=== PATIENT | male | born 1980 | race Two or more races ===

== ENCOUNTER 2022-03-14 22:55 | Inpatient (IN) | payer OTHER, SELFPAY ==
--- NOTE | ~2022-03-14 | CT_ITS ---
EXAMINATION: CT HEAD WITHOUT CONTRAST CLINICAL INFORMATION: Oscillopsia. COMPARISON: No relevant prior imaging. TECHNIQUE: Contiguous axial imaging was performed from the skull base to vertex without intravenous administration of contrast. This CT examination was performed using dose optimization techniques as appropriate, variously including the following: *Automated exposure control *Adjustment of mA and/or kV according to patient size (this includes techniques or standardized protocols for targeted exams where dose is matched to indication/reason for exam; i.e. extremities or head) *Use of iterative reconstruction technique DLP: 859 mGy-cm FINDINGS: There is no acute intracranial hemorrhage or abnormal extra-axial collection. No intracranial mass effect or midline shift. Lateral and third ventricles are normal. No hydrocephalus. Moe-white matter differentiation is preserved and there is no evidence of acute territorial infarct. The calvarium and skull base are intact. Mastoid air cells and middle ear cavities are well aerated. No active paranasal sinus disease. CT/CT head/brain wo con IMPRESSION: Normal CT scan of the head.
[2022-03-14 23:05] VITALS: BP 108/60; BP 112/72; PULSE 110; PULSE 120; RESP 14; TEMP 37.3; O2SAT 97; BMI 33.8
--- NOTE | 2022-03-14 23:11 | ECG_ITS ---
Test Reason : CHEST PAIN Blood Pressure : / mmHG Vent. Rate : 104 BPM Atrial Rate : 104 BPM P-R Int : 170 ms QRS Dur : 086 ms QT Int : 338 ms P-R-T Axes : 037 -32 045 degrees QTc Int : 444 ms Sinus tachycardia Left axis deviation Borderline ECG No previous ECGs available Referred By: Kristin Foster Electronically Signed By:KRISTI BREWER
--- NOTE | 2022-03-14 23:12 | ED_ITS ---
HPI - Psych General Chief Complaint: Psychiatric Symptoms Stated Complaint: SI Time Seen by Provider: 03/14/22 23:04 Source: patient and EMS Mode of arrival: EMS Limitations: no limitations History of Present Illness HPI Narrative: Patient comes to the emergency room via EMS. Patient walked into the police station, stated that he was suicidal, Domo SPENCE called EMS and brought him to the emergency room. Patient states that he feels depressed, suicidal. Prior to arrival patient used 60 dollars worth of heroin and 40 dollars worth of cocaine. Patient complaining of chest pain on the left side, nonradiating. Patient requesting to see [facility]. Of note, patient lost his 2 weeks ago, his of an asthma exacerbation. Patient states that he has command hallucinations to end his life Related Data Allergies Allergy/AdvReac Type Severity Reaction Status Date / Time No Known Allergies Allergy Verified 03/14/22 23:11 Review of Systems Review of Systems: Constitutional : No Weight loss, No Fever, No Chills, No Night Sweats, No Fatigue, No Malaise ENT/Mouth : No Hearing loss, No Ear Pain, No Nasal Congestion, No Sinus Pain, No Hoarseness, No sore throat, No Rhinorrhea, No Swallowing Difficulty Eyes: No Eye Pain, No Swelling, No Redness, No Foreign Body, No Discharge, No Vision Changes Cardiovascular : Complaining chest pain on the left side, no shortness of breath, no orthopnea, palpitations Respiratory : No Cough, No Sputum, No Wheezing, No Smoke Exposure, No Dyspnea Gastrointestinal : No Nausea, No Vomiting, No Diarrhea, No Constipation, No abdominal Pain, No Hematochezia, No Melena Genitourinary : no irregular bleeding, No Dysuria, No Urinary Frequency, No Hematuria, No Urinary Incontinence, No Urgency, No Flank Pain, No Urinary Flow Changes, No Hesitancy Musculoskeletal : No joint pain, No Myalgias, No Joint Swelling Skin : No Skin Lesions, No rash Neuro : No Weakness, No Numbness, No Paresthesias, No Loss of Consciousness, No Dizziness, No Headache Psych : Complaining of depression, suicidal ideation, no anxiety, no homicidal ideation Heme/Lymph: No Bruising, No Bleeding,No Lymphadenopathy Endocrine : No Polyuria, No Polydipsia, No Temperature Intolerance PMFSH Past Medical History Medical History (Updated 03/15/22 @ 02:36 by Kristin Foster MD) Polysubstance abuse Social History Social History Advance Directives: No Physical Exam Vital Signs: Vital Signs: Last Vital Signs Temp 98.0 F 03/15/22 00:00 Pulse 92 03/15/22 00:00 Resp 18 03/15/22 00:00 BP 107/70 03/15/22 00:00 Pulse Ox 97 03/15/22 00:00 BMI result Body Mass Index 33.8 Const: Other: Appearance: Alert. Oriented X3. No acute distress. Well-appearing Eyes: Pupils equal, round and reactive to light. ENT: Pharynx normal. Neck: Normal inspection. Neck supple. No lymph nodes noted. No crepitus CVS: Normal heart rate and rhythm. Pulses normal. Normal S1 and S2 Respiratory: No respiratory distress. Breath sounds normal. No Wheezing. No rales Abdomen: Soft and nontender. No rigidity. No distention. Skin: Skin warm and dry. Normal skin color. Normal skin turgor. Extremities: No lower extremity edema. No Lacerations. No Rash Neuro: Oriented X 3. No motor deficit. No sensory deficit. Moving all extremities. No slurred speech. CN 2 through 12 grossly intact Psych: calm, cooperative, normal affect Course Course Course Narrative: Labs and EKG pending. After medical clearance patient will be going to the [facility] pod Patient's troponin 2. Needs to be redrawn at 02:30 in the morning. Patient will be going to the [facility] pod Patient is on a Section 12 Physician observation started at 00:25 [facility] evaluated the patient. Recommendation inpatient bed search, Section 12 MDM - Psych Lab Data Result diagrams: 03/14/22 23:39 03/14/22 23:39 Labs: Lab Results 03/14/22 03/14/22 03/14/22 Range/Units 23:39 23:39 23:39 WBC 11.3 H (4.8-10.8) X10*3/uL RBC 4.71 (4.60-5.80) X10*6/uL Hgb 11.2 L (14.0-18.0) g/dl Hct 36.4 L (42.0-52.0) % MCV 77.3 L (80.0-98.0) fL MCH 23.8 L (27.0-33.0) pg MCHC 30.8 L (31.0-36.0) g/dl RDW 18.0 H (11.0-16.0) % Plt Count 310 (160-400) X10*3/uL MPV 10.1 (9.4-12.4) fL Immature Gran % (Auto) 0.3 (0.0-0.4) % Neut % (Auto) 74.0 H (45-73) % Lymph % (Auto) 18.2 L (20-40) % Atkinson % (Auto) 6.5 (2-11) % Eos % (Auto) 0.7 (0-4) % Baso % (Auto) 0.3 (0-2) % Lymph # (Auto) 2.1 (1.2-4.9) X10*3/uL Atkinson # (Auto) 0.7 (0.1-1.2) X10*3/uL Eos # (Auto) 0.1 (0.0-0.4) X10*3/uL Baso # (Auto) 0.0 (0.0-0.2) X10*3/uL Abs Immat Gran (auto) 0.03 (0.00-0.03) X10*3/uL Absolute Neuts (auto) 8.4 H (2.0-8.3) x10*3/uL Absolute Nucleated RBC 0.000 (0.0-0.012) X10*3/uL Nucleated RBC % (auto) 0.0 (0.0-0.2) /100WBC Sodium 141 (135-145) mmol/L Potassium 3.8 (3.3-5.1) mmol/L Chloride 106 (96-108) mmol/L Carbon Dioxide 27 (22-29) mmol/L Anion Gap 12 (12-20) BUN 22 H (9-16) mg/dL Creatinine 0.90 (0.5-1.4) mg/dL Estim Creat Clear Calc 111.6 Estimated GFR > 60 Random Glucose 92 (60-115) mg/dL Calcium 9.6 (8.4-10.2) mg/dL Magnesium 1.7 (1.6-2.6) mg/dL Total Bilirubin 0.2 (0.0-1.0) mg/dL Direct Bilirubin < 0.2 (0.0-0.5) mg/dL AST 22 (5-37) U/L ALT 27 (0-40) U/L Alkaline Phosphatase 94 (39-117) U/L Troponin I High Sens 8.4 (<3.5-35.0) ng/L Total Protein 7.8 (6.5-8.0) g/dL Albumin 3.9 (3.5-5.0) g/dL Urine Color Urine Appearance Urine pH (5.0-8.0) Ur Specific [place] (1.005-1.025) Urine Protein (NEG-TRACE) MG/DL Urine Glucose (UA) (NEG) MG/DL Urine Ketones (NEG) MG/DL Urine Blood (NEG) Urine Nitrite (NEG) Ur Leukocyte Esterase (NEG) Urine RBC (0) /HPF Urine WBC (0-4) /HPF Ur Squamous Epith Cells /LPF Calcium Oxalate Crystal /LPF Urine Bacteria /LPF Urine Mucus /LPF Urine Opiates Screen (Not Detect) Urine Fentanyl Screen (Not Detect) Ur Barbiturates Screen (Not Detect) Ur Phencyclidine Scrn (Not Detect) Ur Amphetamines Screen (Not Detect) U Benzodiazepines Scrn (Not Detect) Urine Cocaine Screen (Not Detect) U Marijuana (THC) Screen (Not Detect) Ethyl Alcohol mg/dL COVID-19 (JENNIFER) (Negative) COVID-19 Clin Com 03/14/22 03/14/22 03/15/22 Range/Units 23:39 23:39 00:43 WBC (4.8-10.8) X10*3/uL RBC (4.60-5.80) X10*6/uL Hgb (14.0-18.0) g/dl Hct (42.0-52.0) % MCV (80.0-98.0) fL MCH (27.0-33.0) pg MCHC (31.0-36.0) g/dl RDW (11.0-16.0) % Plt Count (160-400) X10*3/uL MPV (9.4-12.4) fL Immature Gran % (Auto) (0.0-0.4) % Neut % (Auto) (45-73) % Lymph % (Auto) (20-40) % Atkinson % (Auto) (2-11) % Eos % (Auto) (0-4) % Baso % (Auto) (0-2) % Lymph # (Auto) (1.2-4.9) X10*3/uL Atkinson # (Auto) (0.1-1.2) X10*3/uL Eos # (Auto) (0.0-0.4) X10*3/uL Baso # (Auto) (0.0-0.2) X10*3/uL Abs Immat Gran (auto) (0.00-0.03) X10*3/uL Absolute Neuts (auto) (2.0-8.3) x10*3/uL Absolute Nucleated RBC (0.0-0.012) X10*3/uL Nucleated RBC % (auto) (0.0-0.2) /100WBC Sodium (135-145) mmol/L Potassium (3.3-5.1) mmol/L Chloride (96-108) mmol/L Carbon Dioxide (22-29) mmol/L Anion Gap (12-20) BUN (9-16) mg/dL Creatinine (0.5-1.4) mg/dL Estim Creat Clear Calc Estimated GFR Random Glucose (60-115) mg/dL Calcium (8.4-10.2) mg/dL Magnesium (1.6-2.6) mg/dL Total Bilirubin (0.0-1.0) mg/dL Direct Bilirubin (0.0-0.5) mg/dL AST (5-37) U/L ALT (0-40) U/L Alkaline Phosphatase (39-117) U/L Troponin I High Sens (<3.5-35.0) ng/L Total Protein (6.5-8.0) g/dL Albumin (3.5-5.0) g/dL Urine Color YELLOW Urine Appearance TURBID Urine pH 6.0 (5.0-8.0) Ur Specific [place] >= 1.030 H (1.005-1.025) Urine Protein TRACE (NEG-TRACE) MG/DL Urine Glucose (UA) NEG (NEG) MG/DL Urine Ketones 5 (NEG) MG/DL Urine Blood 3+ H (NEG) Urine Nitrite NEG (NEG) Ur Leukocyte Esterase 1+ H (NEG) Urine RBC 15-29 H (0) /HPF Urine WBC 15-29 H (0-4) /HPF Ur Squamous Epith Cells TRACE /LPF Calcium Oxalate Crystal 2+ /LPF Urine Bacteria TRACE /LPF Urine Mucus 3+ /LPF Urine Opiates Screen (Not Detect) Urine Fentanyl Screen (Not Detect) Ur Barbiturates Screen (Not Detect) Ur Phencyclidine Scrn (Not Detect) Ur Amphetamines Screen (Not Detect) U Benzodiazepines Scrn (Not Detect) Urine Cocaine Screen (Not Detect) U Marijuana (THC) Screen (Not Detect) Ethyl Alcohol < 10 mg/dL COVID-19 (JENNIFER) Negative (Negative) COVID-19 Clin Com See Note 03/15/22 Range/Units 00:43 WBC (4.8-10.8) X10*3/uL RBC (4.60-5.80) X10*6/uL Hgb (14.0-18.0) g/dl Hct (42.0-52.0) % MCV (80.0-98.0) fL MCH (27.0-33.0) pg MCHC (31.0-36.0) g/dl RDW (11.0-16.0) % Plt Count (160-400) X10*3/uL MPV (9.4-12.4) fL Immature Gran % (Auto) (0.0-0.4) % Neut % (Auto) (45-73) % Lymph % (Auto) (20-40) % Atkinson % (Auto) (2-11) % Eos % (Auto) (0-4) % Baso % (Auto) (0-2) % Lymph # (Auto) (1.2-4.9) X10*3/uL Atkinson # (Auto) (0.1-1.2) X10*3/uL Eos # (Auto) (0.0-0.4) X10*3/uL Baso # (Auto) (0.0-0.2) X10*3/uL Abs Immat Gran (auto) (0.00-0.03) X10*3/uL Absolute Neuts (auto) (2.0-8.3) x10*3/uL Absolute Nucleated RBC (0.0-0.012) X10*3/uL Nucleated RBC % (auto) (0.0-0.2) /100WBC Sodium (135-145) mmol/L Potassium (3.3-5.1) mmol/L Chloride (96-108) mmol/L Carbon Dioxide (22-29) mmol/L Anion Gap (12-20) BUN (9-16) mg/dL Creatinine (0.5-1.4) mg/dL Estim Creat Clear Calc Estimated GFR Random Glucose (60-115) mg/dL Calcium (8.4-10.2) mg/dL Magnesium (1.6-2.6) mg/dL Total Bilirubin (0.0-1.0) mg/dL Direct Bilirubin (0.0-0.5) mg/dL AST (5-37) U/L ALT (0-40) U/L Alkaline Phosphatase (39-117) U/L Troponin I High Sens (<3.5-35.0) ng/L Total Protein (6.5-8.0) g/dL Albumin (3.5-5.0) g/dL Urine Color Urine Appearance Urine pH (5.0-8.0) Ur Specific [place] (1.005-1.025) Urine Protein (NEG-TRACE) MG/DL Urine Glucose (UA) (NEG) MG/DL Urine Ketones (NEG) MG/DL Urine Blood (NEG) Urine Nitrite (NEG) Ur Leukocyte Esterase (NEG) Urine RBC (0) /HPF Urine WBC (0-4) /HPF Ur Squamous Epith Cells /LPF Calcium Oxalate Crystal /LPF Urine Bacteria /LPF Urine Mucus /LPF Urine Opiates Screen POSITIVE H (Not Detect) Urine Fentanyl Screen POSITIVE H (Not Detect) Ur Barbiturates Screen Not Detected (Not Detect) Ur Phencyclidine Scrn Not Detected (Not Detect) Ur Amphetamines Screen Not Detected (Not Detect) U Benzodiazepines Scrn Not Detected (Not Detect) Urine Cocaine Screen POSITIVE H (Not Detect) U Marijuana (THC) Screen Not Detected (Not Detect) Ethyl Alcohol mg/dL COVID-19 (JENNIFER) (Negative) COVID-19 Clin Com Discharge Plan Discharge Clinical Impression: Polysubstance abuse, Feeling suicidal, Chest pain, Auditory hallucination Patient Disposition: Still a Patient
[2022-03-14 23:45] LABS: Basophils Percent Auto 0.3 % (0-2); Eosinophils Absolute Auto 0.1 X10*3/uL (0.0-0.4); Eosinophils Percent Auto 0.7 % (0-4); Hematocrit 36.4 % (42.0-52.0); Hemoglobin 11.2 g/dl (14.0-18.0); Imm Gran Abs Auto 0.03 X10*3/uL (0.00-0.03); Imm Gran Pct Auto 0.3 % (0.0-0.4); Lymphocytes Absolute Auto 2.1 X10*3/uL (1.2-4.9); Lymphocytes Percent Auto 18.2 % (20-40); MANUAL DIFF FLAG NO; Mean Corpuscular HGB Conc 30.8 g/dl (31.0-36.0); Mean Corpuscular Hemoglobin 23.8 pg (27.0-33.0); Mean Corpuscular Volume 77.3 fL (80.0-98.0); Mean Platelet Volume 10.1 fL (9.4-12.4); Monocytes Absolute Auto 0.7 X10*3/uL (0.1-1.2); Monocytes Percent Auto 6.5 % (2-11); Neutrophils Absolute Auto 8.4 x10*3/uL (2.0-8.3); Platelet Count 310 X10*3/uL (160-400); Red Blood Count 4.71 X10*6/uL (4.60-5.80); White Blood Count 11.3 X10*3/uL (4.8-10.8)
[2022-03-15] VITALS: BP 107/70; PULSE 92; RESP 18; TEMP 36.7; O2SAT 97
[2022-03-15] LABS: COVID-19 Test Negative (Negative)
[2022-03-15 00:09] LABS: Ethanol < 10 mg/dL
[2022-03-15 00:12] LABS: Alanine Aminotransferase 27 U/L (0-40); Albumin Level 3.9 g/dL (3.5-5.0); Alkaline Phosphatase 94 U/L (39-117); Anion Gap 12 (12-20); Aspartate Amino Transferase 22 U/L (5-37); Bilirubin Direct < 0.2 mg/dL (0.0-0.5); Bilirubin Total 0.2 mg/dL (0.0-1.0); Blood Urea Nitrogen 22 mg/dL (9-16); Calcium 9.6 mg/dL (8.4-10.2); Carbon Dioxide 27 mmol/L (22-29); Chloride 106 mmol/L (96-108); Creatinine Clr Calc Pharmacy 111.6; Estimated Glomerular Filt Rate > 60; Glucose Random 92 mg/dL (60-115); Magnesium 1.7 mg/dL (1.6-2.6); Potassium 3.8 mmol/L (3.3-5.1); Sodium 141 mmol/L (135-145); Total Protein 7.8 g/dL (6.5-8.0)
[2022-03-15 00:15] LABS: Troponin-I High Sensitivity 8.4 ng/L (<3.5-35.0)
[2022-03-15 00:55] LABS: Appearance Urine TURBID; Color Urine YELLOW; Glucose Urine UA NEG (NEG); Leukocyte Esterase Urine 1+ (NEG); Nitrite Urine NEG (NEG); Specific Gravity - Urine >= 1.030 (1.005-1.025); UACC Culture Trigger YES; Urine Blood 3+ (NEG); Urine Ketones 5 MG/DL (NEG); Urine Protein TRACE MG/DL (NEG-TRACE)
[2022-03-15 01:05] LABS: Amphetamine Screen Urine Not Detected (Not Detect); Barbiturates, Urine Not Detected (Not Detect); Benzodiazepines Screen Urine Not Detected (Not Detect); Cannabinoid Screen Urine Not Detected (Not Detect); Cocaine Screen Urine POSITIVE (Not Detect); Fentanyl, urine POSITIVE (Not Detect); Opiate Screen Urine POSITIVE (Not Detect); Phencyclidine Screen Urine Not Detected (Not Detect)
[2022-03-15 01:14] LABS: Squamous Epithelial Cell Urine TRACE /LPF
[2022-03-15 01:15] LABS: Bacteria Urine TRACE /LPF; Calcium Oxalate Crystals Urine 2+ /LPF; Mucus Urine 3+ /LPF
[2022-03-15 03:07] LABS: Troponin-I High Sensitivity 8.5 ng/L (<3.5-35.0)
--- NOTE | 2022-03-15 06:47 | PC.NURSE ---
Patient slept through the night, no distress observed/reported, behavior calm and quiet, disposition per [facility] is section 12 inpatient bed search, patient is currently not on any medication except Methadone, methadone dose verified/faxed to pharmacy/provider approved/MAR updated, VSS, will continue to monitor.
[2022-03-15] MEDS: methADONE HCl 20 MG/2 ML ORAL.CONC 30 MG PO (08:24)
--- NOTE | 2022-03-15 13:41 | PC.NURSE ---
Patient alert and oriented x 4 lung sounds are clear skin is pink warm and dry speaks in full sentences without difficulty, aware of plan to be admitted to m3. Awaiting admission orders for the floor.
[2022-03-15 13:42] VITALS: BP 102/62; PULSE 76; RESP 15; TEMP 36.8; O2SAT 98
--- NOTE | 2022-03-15 14:19 | PC.NURSE ---
nurse to nurse given to m3
[2022-03-15 16:10] VITALS: BP 135/87; PULSE 75; RESP 16; TEMP 36.6; O2SAT 99
--- NOTE | 2022-03-15 16:46 | PC.ADMIT ---
Patient arrived to the unit from [facility] at 16:10. Patient arrived in a wheelchair escorted by this RN and security. Patient signed a conditional voluntary. Patient is A & Ox4, and pleasant upon approach. Vital signs upon admission were with in normal limits, T: 97.8F, HR: 75, RR: 16, BP: 165/87, O2: 99% RA. Patient rated pain as 0/10. Patient declined to participate in admission process. Admission was completed using crisis assessment. Per crisis assessment patient was brought to ED due to suicidal ideation and command auditory hallucinations telling him to kill himself. Per crisis pt has a history of past suicide attempts including jumping off a bride into the [place] river. Patient reported in crisis getting into fights and conflicts with others in an attempt to get hurt so that he will feel something . Patient reported to be a smoker and smoking 1.5 packs of cigarettes a day. Requested nicotine patch and nicotine gum for replacement therapies. Toxicology was was positive for opiates, fentanyl, and cocaine. Patient reported the of his 12 days ago has been very hard on me . Patient reported I was in [facility] ED for 3 days after her . They kept me in a bed in a room and a hallway . Patient reported that he uses methadone 30 mg prior to admission. Patient reported sleep has been poor recently. Patient reported that he has recently lost greater than 10 pounds due to decreased appetite. Patient denied having outside providers. Patient currently denies SI/HI/AH/VH. Patient reports feeling safe here.
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
[2022-03-15 22:06] VITALS: BP 133/60; PULSE 72; RESP 16; TEMP 36.8; O2SAT 99
[2022-03-15] MEDS: traZODone HCL 100 MG TABLET PO (22:13)
[2022-03-16 08:00] VITALS: PULSE 73
[2022-03-16 09:31] VITALS: BP 123/85; PULSE 73; RESP 16; TEMP 36.7; O2SAT 98
[2022-03-16] MEDS: methADONE HCl 20 MG/2 ML ORAL.CONC 30 MG PO (09:33)
--- NOTE | 2022-03-16 13:29 | PM.EVENT ---
Event Note Date of Service: 03/16/22 Event Note: Addiction brief note: Patient seen. Has been receiving methadone 30mg QD since admission to [facility]. Reporting chills, diaphoresis in the late afternoon. Had been buying methadone and taking approx 65mg QD (per his report) Heroin 2 bundles QD Plan: -additional methadone 10mg now (total of 40mg today) -methadone 50mg tomorrow and Friday -monitor for oversedation and avoid benzodiazepines if possible Full consult note to follow
[2022-03-16] MEDS: methADONE HCl 20 MG/2 ML ORAL.CONC 10 MG PO (13:42)
[2022-03-16] MEDS: Bismuth Subsalicylate 262 MG TABLET 524 MG PO (13:46)
--- NOTE | 2022-03-16 15:14 | P.PNPSI_ITS ---
Subjective Subjective Date of Service: 03/16/22 Reason For Visit: SI Subjective Notes: Conditional Voluntary Interim History: met with patient. Discussed with Nursing. Admitted in the context of depression, command hallucinations to hurt self, 's around 2 weeks ago. Relapsed on heroin Just before her . On methadone maintenance recently 30 mg. Awaiting addiction consult. Previously saw prescribers at [facility] but did not follow-up. Denies history of suicide attempts. Did endorse a diagnosis of schizoaffective disorder in the past with depression and paranoia and hallucinations but no manic episodes. Did discuss the of his 13 years suddenly around 2 weeks ago. Discussed patient trying to give her an inhaler and a nebulizer at home before EMS arrived. His 8-year-old daughter is currently staying with his mom and he feels positive about this. Does have a history of 2 years sobriety and 1 year until recent relapse. Medication Compliance: Yes Side effects from medications: No Attending Groups: Yes Review of Systems Acute medical concerns: No Review of Systems Review of Systems unremarkable Mental Status Exam Mental Status Exam Narrative: pleasant and engaged. Hospital clothing. Self-care limited. Organized. Articular. Depressed. Endorses suicidal thoughts but also denies plans or intent. Feels supported. Endorses hallucinations telling him to jump out in front of traffic. Denies current paranoia. No HI. Insight and judgment okay Diagnostics Vital Signs (24Hr): Vital Signs - 24 hr 03/15/22 16:10 03/15/22 22:06 03/16/22 09:31 Temperature 97.8 F 98.2 F 98.1 F Pulse Rate 75 72 73 Respiratory Rate 16 16 16 Blood Pressure 135/87 133/60 123/85 Pulse Oximetry 99 99 98 BMI result Body Mass Index 33.8 Labs Results: 03/14/22 23:39 03/14/22 23:39 Labs: Laboratory Results - last 48 hr 03/14/22 03/14/22 03/14/22 23:39 23:39 23:39 WBC 11.3 H RBC 4.71 Hgb 11.2 L Hct 36.4 L MCV 77.3 L MCH 23.8 L MCHC 30.8 L RDW 18.0 H Plt Count 310 MPV 10.1 Immature Gran % (Auto) 0.3 Neut % (Auto) 74.0 H Lymph % (Auto) 18.2 L [place] % (Auto) 6.5 Eos % (Auto) 0.7 Baso % (Auto) 0.3 Lymph # (Auto) 2.1 [place] # (Auto) 0.7 Eos # (Auto) 0.1 Baso # (Auto) 0.0 Abs Immat Gran (auto) 0.03 Absolute Neuts (auto) 8.4 H Absolute Nucleated RBC 0.000 Nucleated RBC % (auto) 0.0 Sodium 141 Potassium 3.8 Chloride 106 Carbon Dioxide 27 Anion Gap 12 BUN 22 H Creatinine 0.90 Estim Creat Clear Calc 111.6 Estimated GFR > 60 Random Glucose 92 Calcium 9.6 Magnesium 1.7 Total Bilirubin 0.2 Direct Bilirubin < 0.2 AST 22 ALT 27 Alkaline Phosphatase 94 Troponin I High Sens 8.4 Total Protein 7.8 Albumin 3.9 Urine Color Urine Appearance Urine pH Ur Specific [place] Urine Protein Urine Glucose (UA) Urine Ketones Urine Blood Urine Nitrite Ur Leukocyte Esterase Urine RBC Urine WBC Ur Squamous Epith Cells Calcium Oxalate Crystal Urine Bacteria Urine Mucus Urine Opiates Screen Urine Fentanyl Screen Ur Barbiturates Screen Ur Phencyclidine Scrn Ur Amphetamines Screen U Benzodiazepines Scrn Urine Cocaine Screen U Marijuana (THC) Screen Ethyl Alcohol COVID-19 (JENNIFER) COVID-19 Clin Com 03/14/22 03/14/22 03/15/22 23:39 23:39 00:43 WBC RBC Hgb Hct MCV MCH MCHC RDW Plt Count MPV Immature Gran % (Auto) Neut % (Auto) Lymph % (Auto) [place] % (Auto) Eos % (Auto) Baso % (Auto) Lymph # (Auto) [place] # (Auto) Eos # (Auto) Baso # (Auto) Abs Immat Gran (auto) Absolute Neuts (auto) Absolute Nucleated RBC Nucleated RBC % (auto) Sodium Potassium Chloride Carbon Dioxide Anion Gap BUN Creatinine Estim Creat Clear Calc Estimated GFR Random Glucose Calcium Magnesium Total Bilirubin Direct Bilirubin AST ALT Alkaline Phosphatase Troponin I High Sens Total Protein Albumin Urine Color YELLOW Urine Appearance TURBID Urine pH 6.0 Ur Specific [place] >= 1.030 H Urine Protein TRACE Urine Glucose (UA) NEG Urine Ketones 5 Urine Blood 3+ H Urine Nitrite NEG Ur Leukocyte Esterase 1+ H Urine RBC 15-29 H Urine WBC 15-29 H Ur Squamous Epith Cells TRACE Calcium Oxalate Crystal 2+ Urine Bacteria TRACE Urine Mucus 3+ Urine Opiates Screen Urine Fentanyl Screen Ur Barbiturates Screen Ur Phencyclidine Scrn Ur Amphetamines Screen U Benzodiazepines Scrn Urine Cocaine Screen U Marijuana (THC) Screen Ethyl Alcohol < 10 COVID-19 (JENNIFER) Negative COVID-19 Clin Com See Note 03/15/22 03/15/22 00:43 02:42 WBC RBC Hgb Hct MCV MCH MCHC RDW Plt Count MPV Immature Gran % (Auto) Neut % (Auto) Lymph % (Auto) [place] % (Auto) Eos % (Auto) Baso % (Auto) Lymph # (Auto) [place] # (Auto) Eos # (Auto) Baso # (Auto) Abs Immat Gran (auto) Absolute Neuts (auto) Absolute Nucleated RBC Nucleated RBC % (auto) Sodium Potassium Chloride Carbon Dioxide Anion Gap BUN Creatinine Estim Creat Clear Calc Estimated GFR Random Glucose Calcium Magnesium Total Bilirubin Direct Bilirubin AST ALT Alkaline Phosphatase Troponin I High Sens 8.5 Total Protein Albumin Urine Color Urine Appearance Urine pH Ur Specific [place] Urine Protein Urine Glucose (UA) Urine Ketones Urine Blood Urine Nitrite Ur Leukocyte Esterase Urine RBC Urine WBC Ur Squamous Epith Cells Calcium Oxalate Crystal Urine Bacteria Urine Mucus Urine Opiates Screen POSITIVE H Urine Fentanyl Screen POSITIVE H Ur Barbiturates Screen Not Detected Ur Phencyclidine Scrn Not Detected Ur Amphetamines Screen Not Detected U Benzodiazepines Scrn Not Detected Urine Cocaine Screen POSITIVE H U Marijuana (THC) Screen Not Detected Ethyl Alcohol COVID-19 (JENNIFER) COVID-19 Clin Com Medications Medications Current Medications Acetaminophen (Acetaminophen 325 Mg Tablet) 650 mg PO Q6H PRN PRN Reason: Headache/Pain Mild Scale (1-3) Al Hydroxide/Mg Hydroxide (Magnesium Hydrox/Alum Hydrox 30 Ml Oral.Susp) 30 ml PO Q6H PRN PRN Reason: Heartburn/Nausea Bismuth Subsalicylate (Bismuth Subsalicylate 262 Mg Tablet) 524 mg PO QID PRN PRN Reason: upset stomach Last Admin: 03/16/22 13:46 Dose: 524 mg Documented by: Clonidine HCl (Clonidine Hcl 0.1 Mg Tablet) 0.1 mg PO TID PRN; Protocol PRN Reason: anxiety Hydroxyzine HCl (Hydroxyzine Hcl 25 Mg Tablet) 25 mg PO BEDTIME PRN PRN Reason: Anxiety Lorazepam (Lorazepam 1 Mg Tablet) 1 mg PO Q6H PRN PRN Reason: for CIWA >8 Magnesium Hydroxide (Milk Of Magnesia 30 Ml Oral.Susp) 30 ml PO DAILY PRN PRN Reason: Constipation Methadone HCl (Methadone Hcl 20 Mg/2 Ml Oral.Conc) 50 mg PO DAILY DENISHA Nicotine Polacrilex (Nicotine Polacrilex 2 Mg Gum) 4 mg BUCCAL Q2H PRN PRN Reason: Nicotine Cravings Olanzapine (Olanzapine 10 Mg Tablet) 10 mg PO BEDTIME DENISHA Trazodone HCl (Trazodone Hcl 50 Mg Tablet) 50 mg PO BEDTIME PRN PRN Reason: Insomnia Allergies Allergies Allergy/AdvReac Type Severity Reaction Status Date / Time No Known Allergies Allergy Verified 03/14/22 23:11 Assessment & Plan Assessment & Plan (1) Adjustment disorder with depressed mood: Status: Acute Code(s): F43.21 - Adjustment disorder with depressed mood (2) Opioid use disorder, moderate, in early remission: Status: Acute Code(s): F11.21 - Opioid dependence, in remission (3) Cocaine use disorder: Status: Acute Code(s): F14.10 - Cocaine abuse, uncomplicated (4) MDD (major depressive disorder), recurrent episode, moderate: Status: Acute Code(s): F33.1 - Major depressive disorder, recurrent, moderate Plan Amish is a 42 y.o. Male who carries a dx of polysubstance abuse, MDD recurrent, and adjustment disorder. He presented to [facility] ED on 03/14/22 due to increased depression, SI, and a recent suicide attempt by overdosing on heroin, cocaine, and fentanyl. Precipitating factors include that his gf of 13 years 2 weeks ago unexpectedly. Plan: Pt is requesting addiction consult, as he does not think his methadone dose is sufficient. Will initiate COWS, CIWA and comfort meds, ativan PRN. Pt denies hx of antidepressant trial and would benefit from SSRI. Will defer to primary psych team. 03/16/2022: Describes main symptoms is being command hallucinations and depression. Will start olanzapine to help with sleep psychosis and also potential mood benefit. Addictions consult pending. I spent minutes with the patient and/or on the patient floor today, greater than?50% of which was spent counseling/coordinating care. Patient educated on: diagnosis, medication risk/benefits and substance abuse Informed Consent: understands Reason for contiued inpatient stay Substantial Risk for: harm to self
[2022-03-16 20:34] VITALS: BP 114/60; PULSE 93; RESP 18; TEMP 36.6; O2SAT 96
--- NOTE | 2022-03-16 20:56 | HO.ADDICT_ITS ---
History of Present Illness Date of Service: 03/16/2022 Chief Complaint: SI Reason for Consult: methadone titration Requesting physician: Mayelin Soria Discussed with referring provider: No Sources of Information: patient interviewed and chart reviewed HPI Narrative: Patient is a 42 year old male with OUD currently psychiatrically admitted with suicidal ideation, AH. Started on methadone 30mg QD while at [facility] ED prior to admission to [facility]. Patient requesting increase in dose. Patient seen on M3. Awake, alert and appropriate Reports he was started on methadone while at [facility] ED for SI. Prior to that had been buying methadone on the street and taking 60-65mg while using up to 2 bundles of heroin QD. Has been using heroin on and off since he was 20 years old. 2 years in recovery--unclear when this was Denies any history of overdose Reports cocain use. Denies ETOH or benzodiazepine use Previously on MOUD, including methadone at [facility].--he would like to retunr to this clinic Requesting dose increase as he has been experiencing withdrawal sx in the early afternoon including chills, body aches, rhinorrea and diaphoresis. Past Psychiatric History: -Hx of suicidal gestures 3 years ago, says [place], [place], did not require medical intervention. -Past med trials: trazodone (helpful) Review of Systems Constitutional: Reports as per HPI Diagnostics Vital Signs (24Hr): Vital Signs - 24 hr 03/15/22 22:06 03/16/22 09:31 03/16/22 20:34 Temperature 98.2 F 98.1 F 97.9 F Pulse Rate 72 73 93 Respiratory Rate 16 16 18 Blood Pressure 133/60 123/85 114/60 Pulse Oximetry 99 98 96 BMI result Body Mass Index 33.8 Labs Results: 03/14/22 23:39 03/14/22 23:39 Labs: Laboratory Results - last 48 hr 03/14/22 03/14/22 03/14/22 23:39 23:39 23:39 WBC 11.3 H RBC 4.71 Hgb 11.2 L Hct 36.4 L MCV 77.3 L MCH 23.8 L MCHC 30.8 L RDW 18.0 H Plt Count 310 MPV 10.1 Immature Gran % (Auto) 0.3 Neut % (Auto) 74.0 H Lymph % (Auto) 18.2 L [place] % (Auto) 6.5 Eos % (Auto) 0.7 Baso % (Auto) 0.3 Lymph # (Auto) 2.1 [place] # (Auto) 0.7 Eos # (Auto) 0.1 Baso # (Auto) 0.0 Abs Immat Gran (auto) 0.03 Absolute Neuts (auto) 8.4 H Absolute Nucleated RBC 0.000 Nucleated RBC % (auto) 0.0 Sodium 141 Potassium 3.8 Chloride 106 Carbon Dioxide 27 Anion Gap 12 BUN 22 H Creatinine 0.90 Estim Creat Clear Calc 111.6 Estimated GFR > 60 Random Glucose 92 Calcium 9.6 Magnesium 1.7 Total Bilirubin 0.2 Direct Bilirubin < 0.2 AST 22 ALT 27 Alkaline Phosphatase 94 Troponin I High Sens 8.4 Total Protein 7.8 Albumin 3.9 Urine Color Urine Appearance Urine pH Ur Specific [place] Urine Protein Urine Glucose (UA) Urine Ketones Urine Blood Urine Nitrite Ur Leukocyte Esterase Urine RBC Urine WBC Ur Squamous Epith Cells Calcium Oxalate Crystal Urine Bacteria Urine Mucus Urine Opiates Screen Urine Fentanyl Screen Ur Barbiturates Screen Ur Phencyclidine Scrn Ur Amphetamines Screen U Benzodiazepines Scrn Urine Cocaine Screen U Marijuana (THC) Screen Ethyl Alcohol COVID-19 (JENNIFER) COVID-19 Clin Com 03/14/22 03/14/22 03/15/22 23:39 23:39 00:43 WBC RBC Hgb Hct MCV MCH MCHC RDW Plt Count MPV Immature Gran % (Auto) Neut % (Auto) Lymph % (Auto) Sam[place] % (Auto) Eos % (Auto) Baso % (Auto) Lymph # (Auto) [place] # (Auto) Eos # (Auto) Baso # (Auto) Abs Immat Gran (auto) Absolute Neuts (auto) Absolute Nucleated RBC Nucleated RBC % (auto) Sodium Potassium Chloride Carbon Dioxide Anion Gap BUN Creatinine Estim Creat Clear Calc Estimated GFR Random Glucose Calcium Magnesium Total Bilirubin Direct Bilirubin AST ALT Alkaline Phosphatase Troponin I High Sens Total Protein Albumin Urine Color YELLOW Urine Appearance TURBID Urine pH 6.0 Ur Specific [place] >= 1.030 H Urine Protein TRACE Urine Glucose (UA) NEG Urine Ketones 5 Urine Blood 3+ H Urine Nitrite NEG Ur Leukocyte Esterase 1+ H Urine RBC 15-29 H Urine WBC 15-29 H Ur Squamous Epith Cells TRACE Calcium Oxalate Crystal 2+ Urine Bacteria TRACE Urine Mucus 3+ Urine Opiates Screen Urine Fentanyl Screen Ur Barbiturates Screen Ur Phencyclidine Scrn Ur Amphetamines Screen U Benzodiazepines Scrn Urine Cocaine Screen U Marijuana (THC) Screen Ethyl Alcohol < 10 COVID-19 (JENNIFER) Negative COVID-19 Clin Com See Note 03/15/22 03/15/22 00:43 02:42 WBC RBC Hgb Hct MCV MCH MCHC RDW Plt Count MPV Immature Gran % (Auto) Neut % (Auto) Lymph % (Auto) Sam[place] % (Auto) Eos % (Auto) Baso % (Auto) Lymph # (Auto) [place] # (Auto) Eos # (Auto) Baso # (Auto) Abs Immat Gran (auto) Absolute Neuts (auto) Absolute Nucleated RBC Nucleated RBC % (auto) Sodium Potassium Chloride Carbon Dioxide Anion Gap BUN Creatinine Estim Creat Clear Calc Estimated GFR Random Glucose Calcium Magnesium Total Bilirubin Direct Bilirubin AST ALT Alkaline Phosphatase Troponin I High Sens 8.5 Total Protein Albumin Urine Color Urine Appearance Urine pH Ur Specific [place] Urine Protein Urine Glucose (UA) Urine Ketones Urine Blood Urine Nitrite Ur Leukocyte Esterase Urine RBC Urine WBC Ur Squamous Epith Cells Calcium Oxalate Crystal Urine Bacteria Urine Mucus Urine Opiates Screen POSITIVE H Urine Fentanyl Screen POSITIVE H Ur Barbiturates Screen Not Detected Ur Phencyclidine Scrn Not Detected Ur Amphetamines Screen Not Detected U Benzodiazepines Scrn Not Detected Urine Cocaine Screen POSITIVE H U Marijuana (THC) Screen Not Detected Ethyl Alcohol COVID-19 (JENNIFER) COVID-19 Clin Com EKG EKG: reviewed Mental Status Exam Mental Status Exam Patient Appearance: Appropriate Patient Orientation: Person, Place, Time and Situation Level of Consciousness: Awake, Appropriate and Alert Patient Behavior: Appropriate and Cooperative Affect Description: Calm Thought Content: positive for Goal Oriented Judgement: Fair Medications Medications Current Medications Acetaminophen (Acetaminophen 325 Mg Tablet) 650 mg PO Q6H PRN PRN Reason: Headache/Pain Mild Scale (1-3) Al Hydroxide/Mg Hydroxide (Magnesium Hydrox/Alum Hydrox 30 Ml Oral.Susp) 30 ml PO Q6H PRN PRN Reason: Heartburn/Nausea Bismuth Subsalicylate (Bismuth Subsalicylate 262 Mg Tablet) 524 mg PO QID PRN PRN Reason: upset stomach Last Admin: 03/16/22 13:46 Dose: 524 mg Documented by: Clonidine HCl (Clonidine Hcl 0.1 Mg Tablet) 0.1 mg PO TID PRN; Protocol PRN Reason: anxiety Hydroxyzine HCl (Hydroxyzine Hcl 25 Mg Tablet) 25 mg PO BEDTIME PRN PRN Reason: Anxiety Ibuprofen (Ibuprofen 600 Mg Tablet) 600 mg PO Q6H PRN PRN Reason: back pain Lorazepam (Lorazepam 1 Mg Tablet) 1 mg PO Q6H PRN PRN Reason: for CIWA >8 Magnesium Hydroxide (Milk Of Magnesia 30 Ml Oral.Susp) 30 ml PO DAILY PRN PRN Reason: Constipation Methadone HCl (Methadone Hcl 20 Mg/2 Ml Oral.Conc) 50 mg PO DAILY DENISHA Nicotine Polacrilex (Nicotine Polacrilex 2 Mg Gum) 4 mg BUCCAL Q2H PRN PRN Reason: Nicotine Cravings Olanzapine (Olanzapine 10 Mg Tablet) 10 mg PO BEDTIME DENISHA Trazodone HCl (Trazodone Hcl 50 Mg Tablet) 50 mg PO BEDTIME PRN PRN Reason: Insomnia Allergies Allergies Allergy/AdvReac Type Severity Reaction Status Date / Time No Known Allergies Allergy Verified 03/14/22 23:11 Assessment & Plan Assessment & Plan (1) Opioid use disorder: Status: Acute Code(s): F11.90 - Opioid use, unspecified, uncomplicated Assessment and Plan: * methadone 10mg X1 today for total of 40mg * methadone 50mg QD starting tomorrow (03/17) * follow up Friday * SW to coordinate outpt care--already connected to [facility] I spent __40____ minutes with the patient and/or on the patient floor today, greater than?50% of which was spent counseling/coordinating care. [facility] Past Medical History Medical History (Updated 03/16/22 @ 21:13 by Myrna Martinez CNP) Opioid use disorder, moderate, in early remission Polysubstance abuse Social History Social History Household Members: Unknown / Unable to assess Housing: Unknown / Unable to assess Housing Other:: Patient declined to answer. Unable to assess alcohol history related to: Refusing to respond Patient Tobacco Use Status: Current everyday Tobacco user Tobacco use type: Cigarette Cigarette Packs Per Day: 1.5 Cigarettes Per Day: 30.0 Smoked in Last 30 Days: Yes e-Cigarette/Vaping Use: Never Used Patient Interested in Nicotine Replacement: Yes Patient Given Instructions on How to Stop Smoking: No Second Hand Smoke Exposure: Yes Use of substances other than those prescribed or required for medical reasons: Yes Substance Use Type: Crack/Cocaine and Heroin Substance Use Frequency: Recent Binge Currently Displaying Signs/Symptoms of Drug Intoxication Withdrawal: No Any prior treatment program specific to substance use: No Spiritual Healthcare Practices: Patient declined to answer. Restoration Healthcare Practices: Patient declined to answer. Cultural Healthcare Practices: Patient declined to answer. Advance Directives: No Do you have thoughts of harming others: None Do you have a plan to hurt others: No Plan Recently lost weight without trying: Yes How much weight loss: 2-13 pounds Eating poorly because of decreased appetite: Yes Nutrition screen score: 4 Nutrition Risks: No Nutritional Risk Poor oral hygiene: No service: No Sexual orientation: Straight/Heterosexual
[2022-03-16] MEDS: OLANZapine 10 MG TABLET PO (22:08)
[2022-03-16] MEDS: traZODone HCL 50 MG TABLET PO (22:08)
[2022-03-17] MEDS: traZODone HCL 50 MG TABLET PO (00:24)
[2022-03-17 08:00] VITALS: PULSE 86
[2022-03-17 10:06] VITALS: BP 110/62; PULSE 86; RESP 16; TEMP 36.8; O2SAT 96
[2022-03-17] MEDS: methADONE HCl 20 MG/2 ML ORAL.CONC 50 MG PO (10:08)
[2022-03-17] MEDS: Acetaminophen 325 MG TABLET 650 MG PO (10:16)
--- NOTE | 2022-03-17 12:45 | P.PNPSI_ITS ---
Subjective Subjective Date of Service: 03/17/22 Reason For Visit: SI Subjective Notes: Conditional Voluntary Interim History: Ongoing depression and intermittent SI and CAH to hurt self (no plans or intent). Sleep difficult- nightmares. Mourning loss of . Appetite ok. Feels safe. Discussed prazosin. Feels comfortable with methadone dose and no withdrawals. Medication Compliance: Yes Side effects from medications: No Attending Groups: No Review of Systems Acute medical concerns: No Review of Systems Review of Systems unremarkable Constitutional: Reports as per [facility] Mental Status Exam Mental Status Exam Narrative: Pleasant. Engaged. Hospital clothing. Self care poor. No withdrawals. Depressed. Intermittent SI. CAH to jump into traffic. No delusions. Insight good Patient Appearance: Appropriate Patient Orientation: Person, Place, Time and Situation Level of Consciousness: Awake, Appropriate and Alert Patient Behavior: Appropriate and Cooperative Affect Description: Calm Diagnostics Vital Signs (24Hr): Vital Signs - 24 hr 03/16/22 20:34 03/17/22 10:06 Temperature 97.9 F 98.2 F Pulse Rate 93 86 Respiratory Rate 18 16 Blood Pressure 114/60 110/62 Pulse Oximetry 96 96 BMI result Body Mass Index 33.8 Labs Results: 03/14/22 23:39 03/14/22 23:39 Medications Medications Current Medications Acetaminophen (Acetaminophen 325 Mg Tablet) 650 mg PO Q6H PRN PRN Reason: Headache/Pain Mild Scale (1-3) Last Admin: 03/17/22 10:16 Dose: 650 mg Documented by: Al Hydroxide/Mg Hydroxide (Magnesium Hydrox/Alum Hydrox 30 Ml Oral.Susp) 30 ml PO Q6H PRN PRN Reason: Heartburn/Nausea Bismuth Subsalicylate (Bismuth Subsalicylate 262 Mg Tablet) 524 mg PO QID PRN PRN Reason: upset stomach Last Admin: 03/16/22 13:46 Dose: 524 mg Documented by: Clonidine HCl (Clonidine Hcl 0.1 Mg Tablet) 0.1 mg PO TID PRN; Protocol PRN Reason: anxiety Hydroxyzine HCl (Hydroxyzine Hcl 25 Mg Tablet) 25 mg PO BEDTIME PRN PRN Reason: Anxiety Ibuprofen (Ibuprofen 600 Mg Tablet) 600 mg PO Q6H PRN PRN Reason: back pain Lorazepam (Lorazepam 1 Mg Tablet) 1 mg PO Q6H PRN PRN Reason: for CIWA >8 Magnesium Hydroxide (Milk Of Magnesia 30 Ml Oral.Susp) 30 ml PO DAILY PRN PRN Reason: Constipation Methadone HCl (Methadone Hcl 20 Mg/2 Ml Oral.Conc) 50 mg PO DAILY [facility] Last Admin: 03/17/22 10:08 Dose: 50 mg Documented by: Nicotine Polacrilex (Nicotine Polacrilex 2 Mg Gum) 4 mg BUCCAL Q2H PRN PRN Reason: Nicotine Cravings Olanzapine (Olanzapine 10 Mg Tablet) 10 mg PO BEDTIME [facility] Last Admin: 03/16/22 22:08 Dose: 10 mg Documented by: Trazodone HCl (Trazodone Hcl 50 Mg Tablet) 50 mg PO BEDTIME PRN PRN Reason: Insomnia Last Admin: 03/17/22 00:24 Dose: 50 mg Documented by: Allergies Allergies Allergy/AdvReac Type Severity Reaction Status Date / Time No Known Allergies Allergy Verified 03/14/22 23:11 Assessment & Plan Assessment & Plan (1) Opioid use disorder: Status: Acute Code(s): F11.90 - Opioid use, unspecified, uncomplicated Assessment and Plan: * methadone 10mg X1 today for total of 40mg * methadone 50mg QD starting tomorrow (03/17) * follow up Friday * to coordinate outpt care--already connected to [place] [facility] (2) MDD (major depressive disorder), recurrent episode, moderate: Status: Acute Code(s): F33.1 - Major depressive disorder, recurrent, moderate (3) Auditory hallucination: Status: Acute Code(s): R44.0 - Auditory hallucinations Plan Olanzapine 10mg started. Add prazosin 2mg bedtime I spent minutes with the patient and/or on the patient floor today, greater than?50% of which was spent counseling/coordinating care. Reason for contiued inpatient stay Substantial Risk for: harm to self
--- NOTE | 2022-03-17 15:24 | MHC.RECOVSUP ---
Recovery Support note: This automobile and property underwriter met with patient to discuss methadone treatment and withdrawal symptoms. Patient was laying in bed asleep when this automobile and property underwriter approached. Patient reports he gets chills and sweats periodically but that his symptoms have improved and that overall he is doing better. Discussed case with Myrna Martinez NP.
[2022-03-17] MEDS: Prazosin HCL 1 MG CAPSULE 2 MG PO (20:50)
[2022-03-17] MEDS: OLANZapine 10 MG TABLET PO (20:50)
[2022-03-17 20:52] VITALS: BP 104/63; PULSE 81; RESP 16; TEMP 36.6; O2SAT 95
[2022-03-18 08:00] VITALS: PULSE 86
--- NOTE | 2022-03-18 10:04 | P.PNPSI_ITS ---
Subjective Subjective Date of Service: 03/18/22 Reason For Visit: SI Subjective Notes: Conditional Voluntary Interim History: Pt reports depressed mood, anhedonia, reports he has avoiding thinking about loss of his 3 weeks ago by using substances and numbing emotions. Pt reports passive SI but denies any plan or intent to hurt himself. He expresses motivation to continue substance use treatment and wants residential treatment. He reports seeing some shadows. He also reports vision changes in past weeks- objects moving. He reports head trauma as well- CT head ordered. Medication Compliance: Yes Side effects from medications: No Review of Systems Review of Systems unremarkable Constitutional: Reports as per HPI Mental Status Exam Mental Status Exam Narrative: Appearance: casually groomed, fair hygiene in NAD Behavior:cooperative psychomotor:no agitation or retardation noted Speech:clear, normal rate/rhythm/volume, spontaneous Thought process:linear Thought content:no signs of delusions or psychosis, future oriented in that he wants residential treatment Mood: depressed Affect: blunted SI:passive HI:none VH/AH:? shadows recently Delusions:none Insight/judgment:fair x 2. Memory/cog: alert, oriented x 3. grossly intact to conversational testing. Diagnostics Vital Signs (24Hr): Vital Signs - 24 hr 03/18/22 10:06 03/18/22 21:20 Temperature 99.0 F 98.7 F Pulse Rate 86 111 H Respiratory Rate 16 18 Blood Pressure 96/64 112/76 Pulse Oximetry 96 96 BMI result Body Mass Index 33.8 Labs Results: 03/18/22 15:17 03/14/22 23:39 Labs: Laboratory Results - last 48 hr 03/18/22 03/18/22 03/18/22 15:17 15:17 15:17 WBC 7.0 RBC 4.90 Hgb 11.7 L Hct 38.5 L MCV 78.6 L MCH 23.9 L MCHC 30.4 L RDW 17.8 H Plt Count 327 MPV 10.0 Immature Gran % (Auto) 0.4 Neut % (Auto) 57.2 Lymph % (Auto) 31.9 [place] % (Auto) 7.9 Eos % (Auto) 2.3 Baso % (Auto) 0.3 Lymph # (Auto) 2.2 [place] # (Auto) 0.6 Eos # (Auto) 0.2 Baso # (Auto) 0.0 Abs Immat Gran (auto) 0.03 Absolute Neuts (auto) 4.0 Absolute Nucleated RBC 0.000 Nucleated RBC % (auto) 0.0 Estimat Average Glucose Hemoglobin A1c % Iron 31 L TIBC 294 % Saturation 11 L Unsat Iron Binding 263 Triglycerides 108 Cholesterol 135 LDL Cholesterol, Calc 77 HDL Cholesterol 37 Vitamin B12 603 Folate 14.0 03/18/22 15:17 WBC RBC Hgb Hct MCV MCH MCHC RDW Plt Count MPV Immature Gran % (Auto) Neut % (Auto) Lymph % (Auto) [place] % (Auto) Eos % (Auto) Baso % (Auto) Lymph # (Auto) [place] # (Auto) Eos # (Auto) Baso # (Auto) Abs Immat Gran (auto) Absolute Neuts (auto) Absolute Nucleated RBC Nucleated RBC % (auto) Estimat Average Glucose 114 Hemoglobin A1c % 5.6 Iron TIBC % Saturation Unsat Iron Binding Triglycerides Cholesterol LDL Cholesterol, Calc HDL Cholesterol Vitamin B12 Folate Imaging Radiology Impressions: ITS Impressions Head CT 03/18/22 17:20 IMPRESSION: Normal CT scan of the head. Medications Medications Current Medications Acetaminophen (Acetaminophen 325 Mg Tablet) 650 mg PO Q6H PRN PRN Reason: Headache/Pain Mild Scale (1-3) Last Admin: 03/19/22 09:55 Dose: 650 mg Documented by: Al Hydroxide/Mg Hydroxide (Magnesium Hydrox/Alum Hydrox 30 Ml Oral.Susp) 30 ml PO Q6H PRN PRN Reason: Heartburn/Nausea Bismuth Subsalicylate (Bismuth Subsalicylate 262 Mg Tablet) 524 mg PO QID PRN PRN Reason: upset stomach Last Admin: 03/16/22 13:46 Dose: 524 mg Documented by: Clonidine HCl (Clonidine Hcl 0.1 Mg Tablet) 0.1 mg PO TID PRN; Protocol PRN Reason: anxiety Hydroxyzine HCl (Hydroxyzine Hcl 25 Mg Tablet) 25 mg PO BEDTIME PRN PRN Reason: Anxiety Ibuprofen (Ibuprofen 600 Mg Tablet) 600 mg PO Q6H PRN PRN Reason: back pain Lorazepam (Lorazepam 1 Mg Tablet) 1 mg PO Q6H PRN PRN Reason: for CIWA >8 Magnesium Hydroxide (Milk Of Magnesia 30 Ml Oral.Susp) 30 ml PO DAILY PRN PRN Reason: Constipation Methadone HCl (Methadone Hcl 20 Mg/2 Ml Oral.Conc) 50 mg PO DAILY DENISHA Last Admin: 03/19/22 09:56 Dose: 50 mg Documented by: Nicotine Polacrilex (Nicotine Polacrilex 2 Mg Gum) 4 mg BUCCAL Q2H PRN PRN Reason: Nicotine Cravings Last Admin: 03/19/22 10:00 Dose: 4 mg Documented by: Olanzapine (Olanzapine 10 Mg Tablet) 10 mg PO BEDTIME DENISHA Last Admin: 03/18/22 21:20 Dose: 10 mg Documented by: Prazosin HCl (Prazosin Hcl 1 Mg Capsule) 2 mg PO BEDTIME DENISHA; Protocol Last Admin: 03/18/22 21:20 Dose: 2 mg Documented by: Trazodone HCl (Trazodone Hcl 50 Mg Tablet) 50 mg PO BEDTIME PRN PRN Reason: Insomnia Last Admin: 03/18/22 21:25 Dose: 50 mg Documented by: Allergies Allergies Allergy/AdvReac Type Severity Reaction Status Date / Time No Known Allergies Allergy Verified 03/14/22 23:11 Assessment & Plan Assessment & Plan (1) MDD (major depressive disorder), recurrent episode, moderate: Status: Acute Code(s): F33.1 - Major depressive disorder, recurrent, moderate (2) Opioid use disorder: Status: Acute Code(s): F11.90 - Opioid use, unspecified, uncomplicated Assessment and Plan: * methadone 10mg X1 today for total of 40mg * methadone 50mg QD starting tomorrow (03/17) * follow up Friday * SW to coordinate outpt care--already connected to [facility] [facility] Plan 1. head ct orderd - head trauma, BECERRA and vision changes 2. continue olanzapine, add antidepressant 3. obtain collateral information 3. aftercare planning- wants CSS, reconnect with op psych tx. I spent ___25___ minutes with the patient and/or on the patient floor today, greater than?50% of which was spent counseling/coordinating care. Reason for contiued inpatient stay Substantial Risk for: harm to self
[2022-03-18 10:06] VITALS: BP 96/64; PULSE 86; RESP 16; TEMP 37.2; O2SAT 96
[2022-03-18] MEDS: methADONE HCl 20 MG/2 ML ORAL.CONC 50 MG PO (10:09)
--- NOTE | 2022-03-18 11:42 | MHC.CLN ---
NUTRITION CONSULT FOR WEIGHT LOSS. PATIENT REPORTS 10-15# WEIGHT LOSS X 2 WEEKS AND THAT NOT EATING MUCH DURING THAT TIME. REPORTS THAT APPETITE IS OK NOW BUT STILL FEELS WEAK. WOULD LIKE ENSURE BID FOR A FEW DAYS . AGREED TO PROVIDE UNTIL FRIDAY AND LONGER IF REQUESTED/NEEDED. DIET=REGULAR. ENSURE BID PROVIDES 700 KCAL, 40 GRAMS PROTEIN. FOLLOW FOR WEIGHTS AND INTAKE.
--- NOTE | 2022-03-18 11:50 | MHC.RECOVRN ---
Met with pt in 326 to follow up regarding methadone titration. Pt reports positive effect with 50 mg received this morning, denies withdrawal symptoms. Pt would like to remain at 50 mg and return to [facility]. Pt encouraged to notify staff of any withdrawal symptoms or if questions or concerns arise. Discussed with Myrna Martinez APRN, as well as TIFFANY.
[2022-03-18 15:22] LABS: MANUAL DIFF FLAG NO
[2022-03-18 15:32] LABS: Basophils Percent Auto 0.3 % (0-2); Eosinophils Absolute Auto 0.2 X10*3/uL (0.0-0.4); Eosinophils Percent Auto 2.3 % (0-4); Hematocrit 38.5 % (42.0-52.0); Hemoglobin 11.7 g/dl (14.0-18.0); Imm Gran Abs Auto 0.03 X10*3/uL (0.00-0.03); Imm Gran Pct Auto 0.4 % (0.0-0.4); Lymphocytes Absolute Auto 2.2 X10*3/uL (1.2-4.9); Lymphocytes Percent Auto 31.9 % (20-40); Mean Corpuscular HGB Conc 30.4 g/dl (31.0-36.0); Mean Corpuscular Hemoglobin 23.9 pg (27.0-33.0); Mean Corpuscular Volume 78.6 fL (80.0-98.0); Monocytes Absolute Auto 0.6 X10*3/uL (0.1-1.2); Monocytes Percent Auto 7.9 % (2-11); Neutrophils Percent Auto 57.2 % (45-73); Platelet Count 327 X10*3/uL (160-400); Red Cell Distribution Width 17.8 % (11.0-16.0)
[2022-03-18 15:40] LABS: Cholesterol 135 mg/dL; HDL Cholesterol 37 mg/dL; Iron 31 mcg/dL (45-160); LDL Cholesterol Calculated 77 mg/dl; Percent Iron Saturation 11 % (15-50); Total Iron Binding Capacity 294 mcg/dL (228-428); Triglycerides 108 mg/dL; Unsaturated Iron Binding 263 ug/dL
[2022-03-18 15:50] LABS: Estimated Average Glucose 114 mg/dL; Hemoglobin A1c % 5.6 %
[2022-03-18] MEDS: clonazePAM 0.5 MG TABLET PO ×2 (15:59→21:20)
[2022-03-18 16:15] LABS: Vitamin B12 603 pg/mL (200-900)
[2022-03-18 21:20] VITALS: BP 112/76; PULSE 111; RESP 18; TEMP 37.1; O2SAT 96
[2022-03-18] MEDS: OLANZapine 10 MG TABLET PO (21:20)
[2022-03-18] MEDS: Prazosin HCL 1 MG CAPSULE 2 MG PO (21:20)
[2022-03-18] MEDS: traZODone HCL 50 MG TABLET PO (21:25)
--- NOTE | 2022-03-19 09:03 | P.PNPSI_ITS ---
Subjective Subjective Date of Service: 03/19/22 Reason For Visit: SI Subjective Notes: Conditional Voluntary Interim History: Pt reports difficulty sleeping at night but has been in bed sleeping most of the day. Vivid dreams- pt sleeping with nicotine patch- instructed to take it off 2 hrs prior to going to bed. Pt denies suicidal ideation. He reports less blurry vision, no shadows. No AH. No behavioral concerns. wants CSS> Medication Compliance: Yes Side effects from medications: No Attending Groups: No Review of Systems Review of Systems unremarkable Constitutional: Reports as per HPI Mental Status Exam Mental Status Exam Narrative: Appearance: casually groomed, fair hygiene in NAD Behavior:cooperative psychomotor:no agitation or retardation noted Speech:clear, normal rate/rhythm/volume, spontaneous Thought process:linear Thought content:no signs of delusions or psychosis, future oriented in that he wants residential treatment Mood: depressed Affect: blunted SI:passive HI:none VH/AH:? shadows recently Delusions:none Insight/judgment:fair x 2. Memory/cog: alert, oriented x 3. grossly intact to conversational testing. Diagnostics Vital Signs (24Hr): Vital Signs - 24 hr 03/19/22 10:00 03/19/22 21:40 Temperature 97.8 F 98.2 F Pulse Rate 110 H 114 H Respiratory Rate 20 18 Blood Pressure 111/79 116/71 Pulse Oximetry 97 98 BMI result Body Mass Index 33.8 Labs Results: 03/18/22 15:17 03/14/22 23:39 Labs: Laboratory Results - last 48 hr 03/18/22 03/18/22 03/18/22 15:17 15:17 15:17 WBC 7.0 RBC 4.90 Hgb 11.7 L Hct 38.5 L MCV 78.6 L MCH 23.9 L MCHC 30.4 L RDW 17.8 H Plt Count 327 MPV 10.0 Immature Gran % (Auto) 0.4 Neut % (Auto) 57.2 Lymph % (Auto) 31.9 [place] % (Auto) 7.9 Eos % (Auto) 2.3 Baso % (Auto) 0.3 Lymph # (Auto) 2.2 [place] # (Auto) 0.6 Eos # (Auto) 0.2 Baso # (Auto) 0.0 Abs Immat Gran (auto) 0.03 Absolute Neuts (auto) 4.0 Absolute Nucleated RBC 0.000 Nucleated RBC % (auto) 0.0 Estimat Average Glucose Hemoglobin A1c % Iron 31 L TIBC 294 % Saturation 11 L Unsat Iron Binding 263 Triglycerides 108 Cholesterol 135 LDL Cholesterol, Calc 77 HDL Cholesterol 37 Vitamin B12 603 Folate 14.0 03/18/22 15:17 WBC RBC Hgb Hct MCV MCH MCHC RDW Plt Count MPV Immature Gran % (Auto) Neut % (Auto) Lymph % (Auto) [place] % (Auto) Eos % (Auto) Baso % (Auto) Lymph # (Auto) [place] # (Auto) Eos # (Auto) Baso # (Auto) Abs Immat Gran (auto) Absolute Neuts (auto) Absolute Nucleated RBC Nucleated RBC % (auto) Estimat Average Glucose 114 Hemoglobin A1c % 5.6 Iron TIBC % Saturation Unsat Iron Binding Triglycerides Cholesterol LDL Cholesterol, Calc HDL Cholesterol Vitamin B12 Folate Imaging Radiology Impressions: ITS Impressions Head CT 03/18/22 17:20 IMPRESSION: Normal CT scan of the head. Medications Medications Current Medications Acetaminophen (Acetaminophen 325 Mg Tablet) 650 mg PO Q6H PRN PRN Reason: Headache/Pain Mild Scale (1-3) Last Admin: 03/20/22 00:40 Dose: 650 mg Documented by: Al Hydroxide/Mg Hydroxide (Magnesium Hydrox/Alum Hydrox 30 Ml Oral.Susp) 30 ml PO Q6H PRN PRN Reason: Heartburn/Nausea Bismuth Subsalicylate (Bismuth Subsalicylate 262 Mg Tablet) 524 mg PO QID PRN PRN Reason: upset stomach Last Admin: 03/19/22 21:47 Dose: 524 mg Documented by: Clonidine HCl (Clonidine Hcl 0.1 Mg Tablet) 0.1 mg PO TID PRN; Protocol PRN Reason: anxiety Hydroxyzine HCl (Hydroxyzine Hcl 25 Mg Tablet) 25 mg PO BEDTIME PRN PRN Reason: Anxiety Ibuprofen (Ibuprofen 600 Mg Tablet) 600 mg PO Q6H PRN PRN Reason: back pain Last Admin: 03/19/22 21:43 Dose: 600 mg Documented by: Magnesium Hydroxide (Milk Of Magnesia 30 Ml Oral.Susp) 30 ml PO DAILY PRN PRN Reason: Constipation Methadone HCl (Methadone Hcl 20 Mg/2 Ml Oral.Conc) 50 mg PO DAILY DENISHA Last Admin: 03/20/22 08:46 Dose: 50 mg Documented by: Nicotine Polacrilex (Nicotine Polacrilex 2 Mg Gum) 4 mg BUCCAL Q2H PRN PRN Reason: Nicotine Cravings Last Admin: 03/19/22 10:00 Dose: 4 mg Documented by: Olanzapine (Olanzapine 10 Mg Tablet) 10 mg PO BEDTIME DENISHA Last Admin: 03/19/22 21:44 Dose: 10 mg Documented by: Prazosin HCl (Prazosin Hcl 1 Mg Capsule) 2 mg PO BEDTIME DENISHA; Protocol Last Admin: 03/19/22 21:42 Dose: 2 mg Documented by: Trazodone HCl (Trazodone Hcl 50 Mg Tablet) 50 mg PO BEDTIME PRN PRN Reason: Insomnia Last Admin: 03/20/22 00:40 Dose: 50 mg Documented by: Allergies Allergies Allergy/AdvReac Type Severity Reaction Status Date / Time No Known Allergies Allergy Verified 03/14/22 23:11 Assessment & Plan Assessment & Plan (1) MDD (major depressive disorder), recurrent episode, moderate: Status: Acute Code(s): F33.1 - Major depressive disorder, recurrent, moderate (2) Opioid use disorder: Status: Acute Code(s): F11.90 - Opioid use, unspecified, uncomplicated Assessment and Plan: * methadone 10mg X1 today for total of 40mg * methadone 50mg QD starting tomorrow (03/17) * follow up Friday * SW to coordinate outpt care--already connected to [facility] Plan 1. head ct orderd - head trauma, BECERRA and vision changes 2. continue olanzapine, add antidepressant 3. obtain collateral information 3. aftercare planning- wants CSS, reconnect with op psych tx. 03/19- continue current medications. Iron low- start iron supplements. I spent __25____ minutes with the patient and/or on the patient floor today, greater than?50% of which was spent counseling/coordinating care. Reason for contiued inpatient stay Substantial Risk for: harm to self
[2022-03-19] MEDS: Acetaminophen 325 MG TABLET 650 MG PO (09:55)
[2022-03-19] MEDS: clonazePAM 0.5 MG TABLET PO (09:55)
[2022-03-19] MEDS: methADONE HCl 20 MG/2 ML ORAL.CONC 50 MG PO (09:56)
[2022-03-19 10:00] VITALS: BP 111/79; PULSE 110; RESP 20; TEMP 36.6; O2SAT 97
[2022-03-19] MEDS: Nicotine Polacrilex 2 MG GUM 4 MG BUCCAL (10:00)
--- NOTE | 2022-03-19 16:01 | PC.NURSE ---
COWS discontinued per Paola Philip APRN.
[2022-03-19 21:40] VITALS: BP 116/71; PULSE 114; RESP 18; TEMP 36.8; O2SAT 98
[2022-03-19] MEDS: Prazosin HCL 1 MG CAPSULE 2 MG PO (21:42)
[2022-03-19] MEDS: traZODone HCL 50 MG TABLET PO (21:43)
[2022-03-19] MEDS: Ibuprofen 600 MG TABLET PO (21:43)
[2022-03-19] MEDS: OLANZapine 10 MG TABLET PO (21:44)
[2022-03-19] MEDS: Bismuth Subsalicylate 262 MG TABLET 524 MG PO (21:47)
[2022-03-20] MEDS: Acetaminophen 325 MG TABLET 650 MG PO (00:40)
[2022-03-20] MEDS: traZODone HCL 50 MG TABLET PO (00:40)
[2022-03-20 08:00] VITALS: BP 108/65; PULSE 73; RESP 16; TEMP 36.6; O2SAT 96
[2022-03-20] MEDS: methADONE HCl 20 MG/2 ML ORAL.CONC 50 MG PO (08:46)
--- NOTE | 2022-03-20 09:16 | HO.PSYCHPN ---
Subjective Subjective Date of Service: 03/20/22 Reason For Visit: SI Subjective Notes: Conditional Voluntary Interim History: Pt moslty in bed most of the day. He reports vivid dreams, he is sleeping with nicotine patch. advised to remove it 2 hrs prior. He reports less depressed mood, less passive SI thoughts. He was advised to attend groups. He states he wants to go to [facility]> Medication Compliance: Yes Side effects from medications: No Attending Groups: No Review of Systems Review of Systems unremarkable Constitutional: Reports as per HPI Mental Status Exam Mental Status Exam Narrative: Appearance: casually groomed, fair hygiene in NAD Behavior:cooperative psychomotor:no agitation or retardation noted Speech:clear, normal rate/rhythm/volume, spontaneous Thought process:linear Thought content:no signs of delusions or psychosis, future oriented in that he wants residential treatment Mood: depressed Affect: blunted SI:passive HI:none VH/AH:? shadows recently Delusions:none Insight/judgment:fair x 2. Memory/cog: alert, oriented x 3. grossly intact to conversational testing. Diagnostics Vital Signs (24Hr): Vital Signs - 24 hr 03/21/22 21:56 Temperature 97.7 F Pulse Rate 92 Respiratory Rate 18 Blood Pressure 122/73 Pulse Oximetry 97 BMI result Body Mass Index 35.8 Labs Results: 03/18/22 15:17 03/14/22 23:39 Imaging Radiology Impressions: ITS Impressions Head CT 03/18/22 17:20 IMPRESSION: Normal CT scan of the head. Medications Medications Current Medications Acetaminophen (Acetaminophen 325 Mg Tablet) 650 mg PO Q6H PRN PRN Reason: Headache/Pain Mild Scale (1-3) Last Admin: 03/21/22 12:43 Dose: 650 mg Documented by: Al Hydroxide/Mg Hydroxide (Magnesium Hydrox/Alum Hydrox 30 Ml Oral.Susp) 30 ml PO Q6H PRN PRN Reason: Heartburn/Nausea Bismuth Subsalicylate (Bismuth Subsalicylate 262 Mg Tablet) 524 mg PO QID PRN PRN Reason: upset stomach Last Admin: 03/19/22 21:47 Dose: 524 mg Documented by: Clonidine HCl (Clonidine Hcl 0.1 Mg Tablet) 0.1 mg PO TID PRN; Protocol PRN Reason: anxiety Duloxetine HCl (Duloxetine Hcl 20 Mg Capsule.Dr) 40 mg PO DAILY DENISHA Last Admin: 03/22/22 09:01 Dose: 40 mg Documented by: Ferrous Sulfate (Ferrous Sulfate 324 Mg Tablet.) 324 mg PO DAILY [facility] Last Admin: 03/22/22 09:01 Dose: 324 mg Documented by: Hydroxyzine HCl (Hydroxyzine Hcl 25 Mg Tablet) 25 mg PO BEDTIME PRN PRN Reason: Anxiety Ibuprofen (Ibuprofen 600 Mg Tablet) 600 mg PO Q6H PRN PRN Reason: back pain Last Admin: 03/19/22 21:43 Dose: 600 mg Documented by: Magnesium Hydroxide (Milk Of Magnesia 30 Ml Oral.Susp) 30 ml PO DAILY PRN PRN Reason: Constipation Methadone HCl (Methadone Hcl 20 Mg/2 Ml Oral.Conc) 50 mg PO DAILY [facility] Last Admin: 03/22/22 09:01 Dose: 50 mg Documented by: Nicotine Polacrilex (Nicotine Polacrilex 2 Mg Gum) 4 mg BUCCAL Q2H PRN PRN Reason: Nicotine Cravings Last Admin: 03/19/22 10:00 Dose: 4 mg Documented by: Olanzapine (Olanzapine 10 Mg Tablet) 10 mg PO BEDTIME [facility] Last Admin: 03/21/22 21:57 Dose: 10 mg Documented by: Prazosin HCl (Prazosin Hcl 1 Mg Capsule) 2 mg PO BEDTIME DENISHA; Protocol Last Admin: 03/21/22 21:57 Dose: 2 mg Documented by: Trazodone HCl (Trazodone Hcl 100 Mg Tablet) 100 mg PO BEDTIME PRN PRN Reason: Insomnia Allergies Allergies Allergy/AdvReac Type Severity Reaction Status Date / Time No Known Allergies Allergy Verified 03/14/22 23:11 Assessment & Plan Assessment & Plan (1) MDD (major depressive disorder), recurrent episode, moderate: Status: Acute Code(s): F33.1 - Major depressive disorder, recurrent, moderate (2) Opioid use disorder: Status: Acute Code(s): F11.90 - Opioid use, unspecified, uncomplicated Assessment and Plan: methadone 10mg X1 today for total of 40mg methadone 50mg QD starting tomorrow (03/17) follow up Friday SW to coordinate outpt care--already connected to [facility] Plan 1. head ct orderd - head trauma, BECERRA and vision changes 2. continue olanzapine, add antidepressant 3. obtain collateral information 3. aftercare planning- wants CSS, reconnect with op psych tx. 03/19- continue current medications. Iron low- start iron supplements. 03/20 start cymbalta 20mg po daily for depression I spent __25____ minutes with the patient and/or on the patient floor today, greater than?50% of which was spent counseling/coordinating care. Reason for contiued inpatient stay Substantial Risk for: harm to self
[2022-03-20] MEDS: DULoxetine HCl 20 MG CAPSULE.DR PO (10:05)
[2022-03-20] MEDS: Ferrous Sulfate 324 MG TABLET.DR 325 MG PO (10:05)
--- NOTE | 2022-03-20 10:21 | MHC.CLN ---
F/U NO REPORTED CONCERNS WITH APPETITE OR INTAKE. ASKED PATIENT ABOUT CONTINUING ENSURE WHILE ADMITTED. WOULD LIKE TO CONTINUE ENSURE SUPPLEMENT. DIET-REGULAR DIET WITH ENSURE BID (700 KCAL, 40 G PROTEIN).
[2022-03-20 20:45] VITALS: BP 111/69; PULSE 120; RESP 16; TEMP 36.9; O2SAT 95
[2022-03-20] MEDS: OLANZapine 10 MG TABLET PO (20:53)
[2022-03-20] MEDS: Prazosin HCL 1 MG CAPSULE 2 MG PO (20:53)
[2022-03-21 07:00] VITALS: BMI 35.8
[2022-03-21 08:00] VITALS: BP 130/66; PULSE 83; RESP 16; TEMP 36.7; O2SAT 94
[2022-03-21] MEDS: DULoxetine HCl 20 MG CAPSULE.DR PO (08:47)
[2022-03-21] MEDS: Ferrous Sulfate 324 MG TABLET.DR PO (08:47)
[2022-03-21] MEDS: methADONE HCl 20 MG/2 ML ORAL.CONC 50 MG PO (08:47)
--- NOTE | 2022-03-21 09:18 | HO.PSYCHPN ---
Subjective Subjective Date of Service: 03/21/22 Reason For Visit: SI Subjective Notes: Conditional Voluntary Interim History: Pt reports he slept better, more awake today and social with peers. He was given phone for [facility] but has not called. He is on wait list for [facility], he denies SI/HI. NO signs of psychosis. Mood improved. will d/c tomorrow to [facility]. No behavioral concerns. Medication Compliance: Yes Side effects from medications: No Review of Systems Review of Systems unremarkable Constitutional: Reports as per [facility] Mental Status Exam Mental Status Exam Narrative: Appearance: casually groomed, fair hygiene in NAD Behavior:cooperative psychomotor:no agitation or retardation noted Speech:clear, normal rate/rhythm/volume, spontaneous Thought process:linear Thought content:no signs of delusions or psychosis, future oriented in that he wants residential treatment Mood: depressed Affect: blunted SI:passive HI:none VH/AH:? shadows recently Delusions:none Insight/judgment:fair x 2. Memory/cog: alert, oriented x 3. grossly intact to conversational testing. Diagnostics Vital Signs (24Hr): Vital Signs - 24 hr 03/21/22 21:56 Temperature 97.7 F Pulse Rate 92 Respiratory Rate 18 Blood Pressure 122/73 Pulse Oximetry 97 BMI result Body Mass Index 35.8 Labs Results: 03/18/22 15:17 03/14/22 23:39 Imaging Radiology Impressions: ITS Impressions Head CT 03/18/22 17:20 IMPRESSION: Normal CT scan of the head. Medications Medications Current Medications Acetaminophen (Acetaminophen 325 Mg Tablet) 650 mg PO Q6H PRN PRN Reason: Headache/Pain Mild Scale (1-3) Last Admin: 03/21/22 12:43 Dose: 650 mg Documented by: Al Hydroxide/Mg Hydroxide (Magnesium Hydrox/Alum Hydrox 30 Ml Oral.Susp) 30 ml PO Q6H PRN PRN Reason: Heartburn/Nausea Bismuth Subsalicylate (Bismuth Subsalicylate 262 Mg Tablet) 524 mg PO QID PRN PRN Reason: upset stomach Last Admin: 03/19/22 21:47 Dose: 524 mg Documented by: Clonidine HCl (Clonidine Hcl 0.1 Mg Tablet) 0.1 mg PO TID PRN; Protocol PRN Reason: anxiety Duloxetine HCl (Duloxetine Hcl 20 Mg Capsule.Dr) 40 mg PO DAILY [facility] Last Admin: 03/22/22 09:01 Dose: 40 mg Documented by: Ferrous Sulfate (Ferrous Sulfate 324 Mg Tablet.) 324 mg PO DAILY [facility] Last Admin: 03/22/22 09:01 Dose: 324 mg Documented by: Hydroxyzine HCl (Hydroxyzine Hcl 25 Mg Tablet) 25 mg PO BEDTIME PRN PRN Reason: Anxiety Ibuprofen (Ibuprofen 600 Mg Tablet) 600 mg PO Q6H PRN PRN Reason: back pain Last Admin: 03/19/22 21:43 Dose: 600 mg Documented by: Magnesium Hydroxide (Milk Of Magnesia 30 Ml Oral.Susp) 30 ml PO DAILY PRN PRN Reason: Constipation Methadone HCl (Methadone Hcl 20 Mg/2 Ml Oral.Conc) 50 mg PO DAILY [facility] Last Admin: 03/22/22 09:01 Dose: 50 mg Documented by: Nicotine Polacrilex (Nicotine Polacrilex 2 Mg Gum) 4 mg BUCCAL Q2H PRN PRN Reason: Nicotine Cravings Last Admin: 03/19/22 10:00 Dose: 4 mg Documented by: Olanzapine (Olanzapine 10 Mg Tablet) 10 mg PO BEDTIME [facility] Last Admin: 03/21/22 21:57 Dose: 10 mg Documented by: Prazosin HCl (Prazosin Hcl 1 Mg Capsule) 2 mg PO BEDTIME [facility]; Protocol Last Admin: 03/21/22 21:57 Dose: 2 mg Documented by: Trazodone HCl (Trazodone Hcl 100 Mg Tablet) 100 mg PO BEDTIME PRN PRN Reason: Insomnia Allergies Allergies Allergy/AdvReac Type Severity Reaction Status Date / Time No Known Allergies Allergy Verified 03/14/22 23:11 Assessment & Plan Assessment & Plan (1) MDD (major depressive disorder), recurrent episode, moderate: Status: Acute Code(s): F33.1 - Major depressive disorder, recurrent, moderate (2) Opioid use disorder: Status: Acute Code(s): F11.90 - Opioid use, unspecified, uncomplicated Assessment and Plan: methadone 10mg X1 today for total of 40mg methadone 50mg QD starting tomorrow (03/17) follow up Friday SW to coordinate outpt care--already connected to [facility] Plan 1. head ct orderd - head trauma, BECERRA and vision changes 2. continue olanzapine, add antidepressant 3. obtain collateral information 3. aftercare planning- wants CSS, reconnect with op psych tx. 03/19- continue current medications. Iron low- start iron supplements. 03/20 start cymbalta 20mg po daily for depression 03/21 increase cymbalta to 40mg po daily. I spent minutes with the patient and/or on the patient floor today, greater than?50% of which was spent counseling/coordinating care. Reason for contiued inpatient stay Substantial Risk for: stable for discharge
[2022-03-21] MEDS: Acetaminophen 325 MG TABLET 650 MG PO (12:43)
[2022-03-21 21:56] VITALS: BP 122/73; PULSE 92; RESP 18; TEMP 36.5; O2SAT 97
[2022-03-21] MEDS: Prazosin HCL 1 MG CAPSULE 2 MG PO (21:57)
[2022-03-21] MEDS: OLANZapine 10 MG TABLET PO (21:57)
[2022-03-22 08:58] VITALS: BP 123/78; PULSE 108; RESP 18; TEMP 36.9; O2SAT 95
[2022-03-22] MEDS: methADONE HCl 20 MG/2 ML ORAL.CONC 50 MG PO (09:01)
[2022-03-22] MEDS: Ferrous Sulfate 324 MG TABLET.DR PO (09:01)
[2022-03-22] MEDS: DULoxetine HCl 20 MG CAPSULE.DR 40 MG PO (09:01)
--- NOTE | 2022-03-22 09:27 | P.DS_ITS ---
DS: Providers Provider Date of Service: 03/22/22 Date of admission: 03/15/22 15:42 Primary care physician: Unknown Physician Consults: 03/15/22 21:24 Addiction Medicine Routine Consulting Provider: Myrna Martinez Reason for consultation: interested in increasing methadone DS: Diagnosis Discharge Diagnosis (1) MDD (major depressive disorder), recurrent episode, moderate: Status: Acute (2) Opioid use disorder: Status: Acute DS: Medications Discharge Medications Home Medications: Previous Rx's Medication Instructions Recorded duloxetine 40 mg capsule,delayed 40 mg PO DAILY #30 cap 03/22/22 release sprinkle ferrous sulfate 324 mg (65 mg 324 mg PO DAILY #30 tab 03/22/22 iron) tablet,delayed release methadone 10 mg/mL oral 50 mg (5 mL) PO DAILY #0 ml 03/22/22 concentrate (Methadose) nicotine (polacrilex) 2 mg gum 4 mg BUCCAL Q2H PRN #30 ea 03/22/22 olanzapine 10 mg tablet 10 mg PO BEDTIME #30 tab 03/22/22 prazosin 1 mg capsule 2 mg PO BEDTIME #30 cap 03/22/22 trazodone 100 mg tablet 100 mg PO BEDTIME PRN #30 tab 03/22/22 Mental Status Exam Mental Status Exam Narrative: Appearance: casually groomed, fair hygiene in NAD Behavior:cooperative psychomotor:no agitation or retardation noted Speech:clear, normal rate/rhythm/volume, spontaneous Thought process:linear Thought content:no signs of delusions or psychosis, future oriented in that he wants residential treatment Mood: better Affect: brighter SI:passive HI:none VH/AH: none Delusions:none Insight/judgment:fair x 2. Memory/cog: alert, oriented x 3. grossly intact to conversational testing. Data Data Completed and Pending Completed studies during hospitalization [Text1]: 03/18/22 03/18/22 03/18/22 15:17 15:17 15:17 WBC 7.0 RBC 4.90 Hgb 11.7 L Hct 38.5 L MCV 78.6 L MCH 23.9 L MCHC 30.4 L RDW 17.8 H Plt Count 327 MPV 10.0 Immature Gran % (Auto) 0.4 Neut % (Auto) 57.2 Lymph % (Auto) 31.9 [place] % (Auto) 7.9 Eos % (Auto) 2.3 Baso % (Auto) 0.3 Lymph # (Auto) 2.2 [place] # (Auto) 0.6 Eos # (Auto) 0.2 Baso # (Auto) 0.0 Abs Immat Gran (auto) 0.03 Absolute Neuts (auto) 4.0 Absolute Nucleated RBC 0.000 Nucleated RBC % (auto) 0.0 Estimat Average Glucose Hemoglobin A1c % Iron 31 L TIBC 294 % Saturation 11 L Unsat Iron Binding 263 Triglycerides 108 Cholesterol 135 LDL Cholesterol, Calc 77 HDL Cholesterol 37 Vitamin B12 603 Folate 14.0 03/18/22 15:17 WBC RBC Hgb Hct MCV MCH MCHC RDW Plt Count MPV Immature Gran % (Auto) Neut % (Auto) Lymph % (Auto) [place] % (Auto) Eos % (Auto) Baso % (Auto) Lymph # (Auto) [place] # (Auto) Eos # (Auto) Baso # (Auto) Abs Immat Gran (auto) Absolute Neuts (auto) Absolute Nucleated RBC Nucleated RBC % (auto) Estimat Average Glucose 114 Hemoglobin A1c % 5.6 Iron TIBC % Saturation Unsat Iron Binding Triglycerides Cholesterol LDL Cholesterol, Calc HDL Cholesterol Vitamin B12 Folate 03/15/22 00:00 Urine clean catch - Clean Catch Midstream Urine Culture - Final No growth. Imaging Diagnostic Imaging Impressions Head CT 03/18/22 17:20 IMPRESSION: Normal CT scan of the head. DS: Summary Hospital Course Hospital Course: Subjective Notes: [place] Warning and Conditional Voluntary Healthcare Proxy: No Guardianship: No Medical Problems Affecting Mental Status: No Narrative: Amish is a 42 y.o. Male who carries a dx of polysubstance abuse, MDD recurrent, and adjustment disorder. He presented to [facility] on 03/14/22 via ambulance after he brought himself to [facility] and reported increased depression, SI, and a recent suicide attempt by overdosing on heroin, cocaine, and fentanyl. Precipitating factors include that his gf of 13 years 2 weeks ago due to complications of an asthma attack. 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 I evaluated the pt this evening and upon interview he reports he is increasingly depressed since his gf , however had relapsed prior to her passing away. Pt reports withdrawal sx of chills, sweating. He says he thinks his methadone dose is too low, will place addiction consult. Reports poor sleep, says ?I dont sleep, I stay in bed and then in the morning I want to go to sleep.? Says he has been using heroin daily for about a month and he went off methadone (restarted in the ED). Says his depression is typically ?on and off.? When he was sober he spent his day helping his sister with care giving for her kids, going to appointments. Has family supports, recently staying with his mom. Says he feels ?depressed, lost, anxious, everything.? Feels angry at the loss of his gf. Pt continues to endorse passive SI, says ?I dont wanna be here,? denies plan or intent and feels safe on the unit. Endorses perceptual disturbance of hearing people calling him, otherwise denies psychotic sx. Says he prefers to isolate when he is around ?a lot of chaos or people.? Pt reports having nightmares ?24, even awake.? Has been perseverating on ?what could I have done differently?? referring to of his gf.?? Past Psychiatric History: -Hx of suicidal gestures 3 years ago, says he jumped [place] a bridge [place] the [place], however, did not require medical intervention.? -Past med trials: trazodone (helpful) Medical Evaluation Reviewed: Yes HOSPITAL COURSE On the unit, Mr. Murphy was admitted on a CV and placed on 15 minutes for safety. Pt endorsed numbing emotions related to loss of his with substances. He reported passive SI, although hope that he could work on substance use and have better life. He reported some shadows, new to him which seemed to be related to substance use more than psychotic disorder. After discussing risks, benefits and alternative treatment options, pt agreed to start cymbalta for depression. He was started on Olanzapine for mood and brief AH/VH. He was started on prazosin for nightmares and trazodone for sleep. He was seen by addiction team, who increase stading dose of methadone. Pt agreed to be referred to [facility], he is currently on wait list. He agreed to be referred to outpatient psychiatric services. There were no incidences of disruptive behaviors nor use of restraints. He agreed to return to his mother's house until bed for [facility] opens up. At time of discharge he did not show any signs of psychosis, he was future oriented. No SI/HI. He reported decreased symptoms of depression, more receptive to treat depression and grief without wanting to numb his emotions with substances. Pt given narcan at time of discharge. Time spent discussing smoking cessation with patient: 3 to 10 minutes Status at Discharge Cognitive/behavioral status at discharge: Pt with brighter, non labile mood. No SI/HI. No VH/AH. No signs of aggression towards self or others. No delusional content reported or noted. Harm reduction discussed- pt given narcan at time of discharge. Functional status at discharge: independent ambulation Overall status at discharge: patient is progressing back to baseline Time Spent with Patient Time attestation: Total time spent providing and/or coordinating discharge services: Discharge Plan Discharge Patient Disposition: Home, Self-Care Discharge Diagnosis: MDD, recurrent, moderate Opioid USe Disorder cocaine use disorder Referrals: [facility] [Other] - 1 Week Dona Rodriguez (Therapy) [Other] - 03/28/22 12:00 pm (IN OFFICE APPOINTMENT) Kezia Clark (Psychiatry) [Other] - 04/22/22 1:00 pm (TELEHEALTH APPOINTMENT -If you have an email, please call the number listed above to provide your email address to [facility]. If you are unable to utilize email, you can go to [address] [place] [address] in [place], [place] the day of your appointment and utilize a computer there for your telehealth appointment. ) Kezia Clark (Psychiatry) [Other] - 05/21/22 10:00 am (TELEHEALTH APPOINTMENT) [facility] [Physician] - 1 Week Discharge Medications: New nicotine (polacrilex) 2 mg Gum 4 mg buccal Q2H PRN (Reason: Nicotine Cravings) Qty: 30 0RF prazosin 1 mg Capsule 2 mg PO BEDTIME Qty: 30 0RF Protocol: Hold for SBP< HOLD for SBP < : 90 ferrous sulfate 324 mg (65 mg iron) Tablet,Delayed Release (Dr/Ec) 324 mg PO DAILY Qty: 30 0RF duloxetine 40 mg capsule, delayed rel sprinkle 40 mg PO DAILY Qty: 30 0RF olanzapine 10 mg Tablet 10 mg PO BEDTIME Qty: 30 0RF trazodone 100 mg Tablet 100 mg PO BEDTIME PRN (Reason: Insomnia) Qty: 30 0RF methadone [Methadose] 10 mg/mL Concentrate 50 mg PO DAILY Qty: 0 0RF Discontinued methadone 10 mg Tablet 30 mg PO DAILY 0RF Discharge Orders: Discharge Order (Routine); Ordered 03/22/22 Ordered By: Paola Philip Diet: regular diet Activity on Discharge: As tolerated Stand Alone Forms: Patient Portal Discharge page Care Plan Goals: 1. maintain mood 2. No SI/HI Harm reduction- given narcan on discharge No psychosis Health Concerns: Follow up with PCP- iron deficiency anemia, started on iron Plan of Treatment: 1. take medications as prescribed 2. go to nearest ED or call 911 in event of emergency Assessment: Pt with brighter, non labile affect. No SI/HI. No signs of AH/VH. Future oriented. No signs of aggression towards self or others.
[2022-03-22] MEDS: Naloxone HCl Nasal TAKE HOME 4 MG SPRAY NOSTRILALT (11:20)
--- NOTE | 2022-03-22 12:30 | PC.NURSE ---
Patient is pleasant an cooperative upon approach. Patient is in agreement with discharge instructions and discharge teachings. Patient denies SI/HI/AH/VH. Patient reports that he has some anxiety, But its not bad . Patient denies physical complaints.
== END 2022-03-22 11:32 | disposition home or self-care (01) | DRG 751 ==
LOC: HO.ED 03-15 02:36 → HO.PADLT16 03-15 15:53
PROVIDERS: Admitting Provider Psychiatry & Neurology Psychiatry; Emergency Provider Emergency Medicine; Visit Provider Social Worker
DX: F33.1 Major depressive disorder, recurrent, moderate (principal); R45.851 Suicidal ideations; F14.10 Cocaine abuse, uncomplicated; F43.21 Adjustment disorder with depressed mood; F11.20 Opioid dependence, uncomplicated; Z20.822 Contact with and (suspected) exposure to COVID-19; F17.210 Nicotine dependence, cigarettes, uncomplicated; Z71.6 Tobacco abuse counseling; Z79.899 Other long term (current) drug therapy
CPT/HCPCS: 36415; 70450; 80048; 80061; 80076; 80307; 81001; 82077; 82607; 82746; 83036; 83540; 83735; 84484; 85025; 87086; 87635; 93005; 99285